=== PATIENT | female | born 1985 | race Caucasian/White ===

== ENCOUNTER 2016-07-28 10:54 | Emergency (ER) | payer MEDICAID ==
[2016-07-28 11:16] VITALS: BP 111/76; PULSE 88; RESP 16; TEMP 99.1; O2SAT 96
--- NOTE | 2016-07-28 12:32 | UCPHY ---
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 While there has been plenty of strep in her classroom she now has a sore throat with some fever. She has not had a headache or myalgias or rhinorrhea to suggest influenza Our local influenza outbreak is on the wane.. ROS: Constitutional - . Eyes - no discharge, or injection ENT - no earache, change in hearing, difficulty swallowing, sore throat. Respiratory - No Shortness of breath, phlegm, wheezing or pleuritic chest pain. The cough is dry Smoking Status: Never smoked Physical Exam: Gen: Well developed, well nourished. Nontoxic. HEENT: Normocephalic. Ears: TMs are clear. Hearing normal. Eyes: PERRL. No conjunctival injection or pallor. no jaundice. Nose: No nasal discharge. Sinuses are nontender. Throat: Membranes are moist. Oropharynx has mild erythema but no exudate. Normal phonation. No adenopathy Skin: Good color, without pallor. There is no diaphoresis. Skin is warm and dry , without diaphoresis. Intact without rashes Constitutional: Initial Vital Signs Temperature (C) 37.3 C 07/28/16 11:13 Heart Rate 88 07/28/16 11:13 Respiratory Rate 16 07/28/16 11:13 Blood Pressure 111/76 07/28/16 11:13 O2 Sat (%) 96 07/28/16 11:13 O2 Delivery Mode Room Air Allergies/Adverse Reactions: No Known Allergies Allergy (Unverified 07/28/16 11:12) Home Medications: Medication Instructions Recorded NK [No Known Home Meds] 07/28/16 Medical Decision Making ED Course/Re-evaluation: Initial testing of strep was negative As this is a delayed dictation, follow-up is not necessary as the final strep was also negative. Differential Diagnosis: Diagnostic considerations include, but are not limited to, the following: URI, sinusitis, pharyngitis, otitis media, pneumonia, allergy, influenza. Departure - Departure Disposition: Home, Routine, Self-Care Clinical Impression: Viral syndrome Pharyngitis Qualifiers: Pharyngitis/tonsillitis etiology: unspecified etiology Qualified Code(s): J02.9 - Acute pharyngitis, unspecified Condition: Good Instructions: Pharyngitis (ED) Additional Instructions: Home to rest We will notify you if the final strep result is positive Referrals: ALVAREZ BAILEY,. [Primary Care Provider] - As per Instructions Stand Alone Forms: School Excuse - PQRS PQRS Measurement: NA
== END 2016-07-28 12:46 | disposition home or self-care (01) ==
LOC: CED 10:54
DX: B34.9 Viral infection, unspecified (principal); J02.9 Acute pharyngitis, unspecified
CPT/HCPCS: 87880-PO; G0463-PO

== ENCOUNTER 2016-10-02 14:00 | Emergency (ER) | payer MEDICAID ==
[2016-10-02 14:19] VITALS: RESP 16
--- NOTE | 2016-10-02 15:11 | EDPHY ---
H & P Time Seen by Provider: 10/02/16 14:38 HPI/ROS: CHIEF COMPLAINT: Sore throat and ear pain HISTORY OF PRESENT ILLNESS: 31-year-old female presents with 2 day history of a sore throat, fever, and developed ear pain last night. Her children have also been ill with similar fevers and sore throat. Denies any nasal congestion or discharge, no cough, shortness of breath, no vomiting or diarrhea, no urinary complaints, and no sputum production. She does report some abdominal discomfort last night which has resolved. REVIEW OF SYSTEMS: Aside from elements discussed in the HPI, a comprehensive 10-point review of systems was reviewed and is negative. PAST MEDICAL HISTORY: Noncontributory. SOCIAL HISTORY: Nonsmoker. VITAL SIGNS: see nurse's notes. GENERAL: Well-developed, well-nourished, in no acute distress. HEENT: Atraumatic Eyes: PERRL, EOMI, no conjunctival injection. Ears: TM clear bilaterally. Nose: No discharge. Mouth: moist mucous membranes. Pharynx: Erythematous, enlarged tonsils, exudates are present. No abscess. Uvula is midline. NECK: Supple, tender right sided cervical adenopathy, no meningismus, no tenderness. Negative Kernig's and Brudzinski's. LUNGS: Clear to auscultation bilaterally, no wheezes, rhonchi or rales. CARDIAC: Regular rate and rhythm, no rubs, murmurs or gallops. ABDOMEN: Soft, nontender, bowel sounds normal. BACK: No CVA tenderness. EXTREMITIES: Normal, no edema, FROM. NEURO: Alert and oriented, grossly nonfocal. SKIN: Warm and dry, no rash. PSYCHIATRIC: Normal mentation, no agitation. Smoking Status: Never smoked Constitutional: Initial Vital Signs Temperature (C) 37.1 C 10/02/16 14:09 Heart Rate 107 H 10/02/16 14:09 Respiratory Rate 16 10/02/16 14:09 Blood Pressure 111/82 H 10/02/16 14:09 O2 Sat (%) 94 10/02/16 14:09 O2 Delivery Mode Room Air Allergies/Adverse Reactions: No Known Allergies Allergy (Verified 10/02/16 14:19) Home Medications: Medication Instructions Recorded Amoxicillin 500 mg PO TID 7 Days 10/02/16 Apri 28 Day Tablet 10/02/16 Sertraline HCl 10/02/16 Medical Decision Making ED Course/Re-evaluation: Rapid strep screen is positive. Patient tells me she took some Sudafed for congestion. She was advised to continue using a decongestant for her ear discomfort, and was placed on amoxicillin for her strep throat. Differential Diagnosis: Differential diagnosis for the patient's sore throat and ear pain was considered including but not limited to viral pharyngitis, bacterial pharyngitis , tonsillitis, tonsillar abscess, peritonsillar abscess, otitis media, serous otitis. - Data Points Laboratory Results: 10/02/16 14:14 Group A Strep Screen POSITIVE H (NEGATIVE) Departure - Departure Disposition: Home, Routine, Self-Care Clinical Impression: Strep throat Acute pharyngitis Qualifiers: Pharyngitis/tonsillitis etiology: streptococcus Qualified Code(s): J02.0 - Streptococcal pharyngitis Ear pain Qualifiers: Laterality: bilateral Qualified Code(s): H92.03 - Otalgia, bilateral Condition: Good Instructions: Strep Throat (ED) Additional Instructions: Your rapid strep screen is positive Please take antibiotics as directed. For your sore throat, I suggest ibuprofen 400-600 mg every 6-8 hours to help with pain and swelling. Salt water gargles and throat lozengers will also be helpful. If you have nasal congestion, I suggest Flonase which is available over the counter as well as an oral decongestant such as Sudafed. Please follow up with your primary care physician if you're not improving as expected. Referrals: ALVAREZ BAILEY,. [Primary Care Provider] - As per Instructions Prescriptions: Amoxicillin 500 mg PO TID 7 Days
[2016-10-02 15:18] VITALS: BP 120/81; PULSE 102; TEMP 98.6; O2SAT 96
== END 2016-10-02 15:18 | disposition home or self-care (01) ==
LOC: CED 14:00
DX: J02.0 Streptococcal pharyngitis (principal); H92.03 Otalgia, bilateral
CPT/HCPCS: 87880-PO

== ENCOUNTER 2016-12-01 18:17 | Emergency (ER) | payer MEDICAID ==
[2016-12-01 18:32] VITALS: RESP 18; TEMP 98.1
--- NOTE | 2016-12-01 18:56 | EDPHY ---
H & P Time Seen by Provider: 12/01/16 18:27 HPI/ROS: HPI Big toe injury. 31-year-old female by private vehicle with her 3 children. This patient had a heavy chair dropped on her left big distal toe. She complains of isolated pain to the left big toe. No other injury or complaint. ROS: Constitutional: No fever, no chills. No weakness. Musculoskeletal: No back pain. No neck pain. As above. No other extremity pain. Skin: No rashes. No lacerations or abrasions. Neurological: No focal weakness or altered sensation. Past medical history: Depression, anxiety, varicose vein surgery. Social history: Nonsmoker. . Here with her 3 children. Physical Exam: General Appearance: Alert, no distress. This patient is responding to questions appropriately and in full sentences. This patient appears well- hydrated and well-nourished. Eyes: Pupils equal and round no pallor or injection. No lid edema, erythema or injection. Left big toe examination: The skin is intact. Capillary refill is normal. She has a faint amount of ecchymosis medial aspect over the anterior phalangeal joint. No deformity noted on palpation of this area. No gross deformity on inspection of the toe of the left big toe symmetric with her right big toe. She does not have significant swelling. The left big toe is neurovascularly intact. Neurological: Motor sensory function is grossly intact. Cranial nerves are normal. Skin: Warm and dry, no rashes. Extremities are symmetrical. All joints range without pain or impingement except noted. Psychiatric: No agitation. No depression. Database: EKG: Imaging: Left foot x-ray series: Significant for a nondisplaced fracture lateral base of the distal phalanx which is intra-articular. Otherwise negative. Interpreted by me. Procedures: Emergency department course: She was given 600 mg of ibuprofen in the emergency department. She was sent for imaging as above. I discussed the results of her x-rays and diagnosis. The big toe was prasanth-taped to her 4th toe. An orthopedic postop shoe was provided to her for comfort. Plan will be to have her follow up with either podiatry or Orthopedics for re-evaluation. Return to emergency department precautions were reviewed. I discussed ibuprofen dosing with her. She feels comfortable with this plan. All of her questions were answered. She was discharged in good condition with her children. Differential Diagnosis: The differential diagnosis on this patient includes but is not limited to closed left big toe fracture. Open fracture, significant neurovascular injury unlikely. This represents a partial list of diagnoses considered. These considerations are based on history, physical exam, past history, reassessment and diagnostic testing. Smoking Status: Never smoked Constitutional: Initial Vital Signs Temperature (C) 36.7 C 12/01/16 18:25 Heart Rate 84 12/01/16 18:25 Respiratory Rate 18 12/01/16 18:25 Blood Pressure 117/75 12/01/16 18:25 O2 Sat (%) 95 12/01/16 18:25 O2 Delivery Mode Room Air Allergies/Adverse Reactions: No Known Allergies Allergy (Verified 10/02/16 14:19) Home Medications: Medication Instructions Recorded Amoxicillin 500 mg PO TID 7 Days 10/02/16 Apri 28 Day Tablet 10/02/16 Sertraline HCl 10/02/16 Medical Decision Making - Diagnostics Imaging Results: Imaging Impressions Toe X-Ray 12/01/16 18:27 Impression: Acute intra-articular fracture involving the proximal lateral base of the great toe distal phalanx. Departure - Departure Disposition: Home, Routine, Self-Care Clinical Impression: Toe fracture, left, Distal phalanx left big fracture closed Condition: Good Instructions: Toe Fracture (ED) Additional Instructions: Read and follow provided instructions. Follow-up with your primary care physician in 1-2 days for re-evaluation and referral to an custom framing specialist as needed. You can also follow up directly with custom framing specialist or farm loan representative I have referred you to. Ibuprofen dosin mg every 6 hours with meals for the next 3 days only. Return to the emergency department for worsening pain, swelling, discoloration or other serious concerns. Referrals: ALVAREZ BAILEY,. [Primary Care Provider] - As per Instructions Murray Hess MD [Medical Doctor] - As per Instructions Perla Aaron [Doctor of Podiatric Medicine] - As per Instructions
[2016-12-01 19:04] VITALS: BP 119/67; PULSE 71; O2SAT 96
== END 2016-12-01 19:06 | disposition home or self-care (01) ==
LOC: CED 18:17
DX: S92.422A Displaced fracture of distal phalanx of left great toe, initial encounter for closed fracture (principal); W20.8XXA Other cause of strike by thrown, projected or falling object, initial encounter
CPT/HCPCS: 73660-PO; L3260

== ENCOUNTER 2017-03-17 21:31 | Emergency (ER) | payer MEDICAID ==
[2017-03-17 21:36] VITALS: BP 112/71; PULSE 18; RESP 93; TEMP 98.6; O2SAT 96
--- NOTE | 2017-03-17 21:46 | EDPHY ---
H & P Stated Complaint: sore throat and cough Time Seen by Provider: 03/17/17 21:39 HPI/ROS: CHIEF COMPLAINT: Sore throat, ear pain, sinus congestion HISTORY OF PRESENT ILLNESS: The patient is a 31-year-old healthy female who comes to the emergency department complaining a sore throat, sinus congestion and ear pain right greater than left. She had a fever of 102 at home that resolved with Tylenol. Her symptoms began 2 days ago. She was treated for strep throat in September of this year and again in December. She states that she finished her antibiotics. She also feels slightly nauseous but has not vomited. No abdominal pain. No diarrhea. REVIEW OF SYSTEMS: Constitutional: denies: chills, fever, recent illness, recent injury EENTM: See HPI Respiratory: denies: cough, shortness of breath Cardiac: denies: chest pain, irregular heart rate, lightheadedness, palpitations Gastrointestinal/Abdominal: denies: abdominal pain, diarrhea, nausea, vomiting, blood streaked stools Genitourinary: denies: dysuria, frequency, hematuria, pain Musculoskeletal: denies: joint pain, muscle pain Skin: denies: lesions, rash, jaundice, bruising Neurological: denies: headache, numbness, paresthesia, tingling, dizziness, weakness Hematologic/Lymphatic: denies: blood clots, easy bleeding, easy bruising Immunologic/allergic: denies: HIV/AIDS, transplant EXAM: GENERAL: Well-appearing, well-nourished and in no acute distress. HEAD: Atraumatic, normocephalic. EYES: Pupils equal round and reactive to light, extraocular movements intact, sclera anicteric, conjunctiva are normal. ENT: TMs with bilateral effusions, no erythema , nares patent, oropharynx mild erythema without exudates. Moist mucous membranes. NECK: Normal range of motion, supple without lymphadenopathy or JVD. LUNGS: Breath sounds clear to auscultation bilaterally and equal. No wheezes rales or rhonchi. HEART: Regular rate and rhythm without murmurs, rubs or gallops. ABDOMEN: Soft, nontender, normoactive bowel sounds. No guarding, no rebound. No masses appreciated. BACK: No CVA tenderness, no spinal tenderness, step-offs or deformities EXTREMITIES: Normal range of motion, no pitting or edema. No clubbing or cyanosis. NEUROLOGICAL: Cranial nerves II through XII grossly intact. Normal speech, normal gait. 5/5 strength, normal movement in all extremities, normal sensation PSYCH: Normal mood, normal affect. SKIN: Warm, dry, normal turgor, no visible rashes or lesions. Source: Patient, Old records Exam Limitations: No limitations - Personal History LMP (Females 10-55): 15-21 Days Ago Current Tetanus/Diphtheria Vaccine: Yes Current Tetanus Diphtheria and Acellular Pertussis (TDAP): Yes Tetanus Vaccine Date: within 10 years - Medical/Surgical History Hx Asthma: No Hx Chronic Respiratory Disease: No Hx Diabetes: No Hx Cardiac Disease: No Hx Renal Disease: No Hx Cirrhosis: No Hx Alcoholism: No Hx HIV/AIDS: No Hx Splenectomy or Spleen Trauma: No Other PMH: strept throat. Depression, anxiety, vericose vein surgery - Family History Significant Family History: No pertinent family hx - Social History Smoking Status: Never smoked Alcohol Use: Sober Drug Use: None Constitutional: Initial Vital Signs Temperature (C) 37.0 C 03/17/17 21:32 Heart Rate 18 L 03/17/17 21:32 Respiratory Rate 93 H 03/17/17 21:32 Blood Pressure 112/71 03/17/17 21:32 O2 Sat (%) 96 03/17/17 21:32 O2 Delivery Mode Room Air Allergies/Adverse Reactions: No Known Allergies Allergy (Verified 10/02/16 14:19) Home Medications: Medication Instructions Recorded Sertraline HCl 10/02/16 Medical Decision Making ED Course/Re-evaluation: 10:05 p.m. the patient's strep test is negative. She clinically appears to have a viral illness. We discussed hydration rest and antipyretics. We also discussed decongestants. Patient is agreeable with this and ready to go home. Differential Diagnosis: Partial list of the Differential diagnosis considered include but were not limited to; viral pharyngitis, upper respiratory tract infection, strep throat and although unlikely based on the history and physical exam, I also considered pneumonia, meningitis, sepsis. I discussed these differential diagnoses and the plan with the patient as well as the usual and expected course. The patient understands that the diagnosis is provisional and that in medicine we are not always correct and that further workup is often warranted. Usual and customary warnings were given. All of the patient's questions were answered. The patient was instructed to return to the emergency department should the symptoms at all worsen or return, otherwise to followup with the physician as we discussed. Departure - Departure Disposition: Home, Routine, Self-Care Clinical Impression: Viral syndrome Pharyngitis Qualifiers: Pharyngitis/tonsillitis etiology: unspecified etiology Qualified Code(s): J02.9 - Acute pharyngitis, unspecified Condition: Fair Instructions: Pharyngitis (ED), Viral Syndrome (ED) Referrals: ALVAREZ BAILEY,. [Primary Care Provider] - As per Instructions
== END 2017-03-17 22:14 | disposition home or self-care (01) ==
LOC: CED 21:31
DX: B34.9 Viral infection, unspecified (principal)
CPT/HCPCS: 87880-PO